=== PATIENT | male | born 1995 | race Two or more races ===

== ENCOUNTER 2017-08-01 15:58 | Emergency (ER) | payer SELFPAY ==
--- NOTE | 2017-08-01 16:09 | EDPHY ---
H & P Stated Complaint: Scalp laceration Time Seen by Provider: 08/01/17 16:08 HPI/ROS: CHIEF COMPLAINT: Scalp laceration HISTORY OF PRESENT ILLNESS: The patient presents the emergency department after he sustained a scalp laceration earlier today when he was struck in the head by a rock. The patient did not lose consciousness. He has no complaints of significant headache, neck pain or additional traumatic injury. The patient' s tetanus shot is up-to-date. He denies any anticoagulant use. The patient has been ambulatory without any acute neurologic symptoms since the injury. REVIEW OF SYSTEMS: A comprehensive 10 point review of systems is otherwise negative aside from elements mentioned in the history of present illness. Source: Patient Exam Limitations: No limitations - Personal History Current Tetanus/Diphtheria Vaccine: Yes - Medical/Surgical History Hx Asthma: No Hx Chronic Respiratory Disease: No Hx Diabetes: No Hx Cardiac Disease: No Hx Renal Disease: No Hx Cirrhosis: No Hx Alcoholism: No Hx HIV/AIDS: No Hx Splenectomy or Spleen Trauma: No Other PMH: r wrist surg/l acl - Social History Smoking Status: Current every day smoker - Physical Exam Exam: General Appearance: Alert, no distress Head: 2 cm scalp laceration noted, no hematoma, no bony tenderness Eyes: Pupils equal, round, reactive ENT, Mouth: No hemotympanum, no oral trauma Neck: Nontender, trachea midline Respiratory: No chest wall tender, subcutaneous air, lungs clear bilaterally Cardiovascular: Regular rate and rhythm Abdomen: Abdomen is soft and nontender, pelvis stable Skin: No lacerations, No abrasion Back: No midline T/L/S pain Extremities: Nontender, full range of motion Neurological: A&Ox3, normal motor function, normal sensory exam, GCS 15 Constitutional: Initial Vital Signs Temperature (C) 37 C 08/01/17 16:02 Heart Rate 100 08/01/17 16:02 Respiratory Rate 20 08/01/17 16:02 Blood Pressure 153/91 H 08/01/17 16:02 O2 Sat (%) 97 08/01/17 16:02 O2 Delivery Mode Room Air Allergies/Adverse Reactions: No Known Allergies Allergy (Unverified 08/01/17 16:02) Home Medications: Medication Instructions Recorded NK [No Known Home Meds] 08/01/17 Medical Decision Making Procedures: Procedure: Laceration repair. Verbal consent was obtained from the patient. The 2 cm laceration on the scalp was anesthetized using lidocaine with epinephrine. The wound was irrigated per protocol, draped and explored to its base with a gloved finger. There were no deep structures involved. The wound was repaired with evelin. The wound repair was simple. The procedure was performed by myself. ED Course/Re-evaluation: The patient presents to the ED after he sustained a scalp laceration. He has no evidence of an abnormal neurologic examination, clinical evidence of a skull fracture or significant hematoma. He has no complaints of an acute headache. I do not feel that a CT scan of the head is indicated. The patient's laceration was anesthetized by myself and cleaned. It was closed with evelin. The patient was re-evaluated at 5:00 p.m. continues to be in no acute distress with a GCS of 15. No complaints of any material headache. No abnormal behavior , normal neurologic examination is noted. The patient will be discharged home with instructions to return in 10 days for staple removal. He is also given closed-head injury aftercare instructions and return precautions. Differential Diagnosis: Differential diagnosis considered includes scalp laceration, skull fracture, closed head injury Departure - Departure Disposition: Home, Routine, Self-Care Clinical Impression: Scalp laceration Condition: Good Instructions: Laceration (ED) Additional Instructions: 1. Return to the ED immediately for severe headache, vomiting, abnormal behavior or other concerns. 2. Return in 10 days for staple removal. 3. Tylenol and ibuprofen as needed for pain. Referrals: NONE *PRIMARY CARE P,. [Primary Care Provider] - As per Instructions
[2017-08-01 16:47] VITALS: BP 145/87; PULSE 91; RESP 18; TEMP 98.1; O2SAT 98
== END 2017-08-01 16:51 | disposition home or self-care (01) ==
PROC: 0HQ0XZZ Repair Scalp Skin, External Approach (ICD-10-PCS; principal; 2017-08-01)
DX: S01.01XA Laceration without foreign body of scalp, initial encounter (principal); F17.200 Nicotine dependence, unspecified, uncomplicated; W22.09XA Striking against other stationary object, initial encounter